=== PATIENT | female | born 1985 | race Caucasian/White ===

== ENCOUNTER 2017-05-20 11:19 | Inpatient (IN) | payer OTHER ==
[~2017-05-20] VITALS: Ht 172.7 cm; Wt 84.0 kg
[2017-05-20] MEDS ORDERED: LACTATED RINGERS 1,000 ML IV SCH (12:46)
[2017-05-20] MEDS ORDERED: D5%-LACTATED RINGERS 1,000 ML IV SCH (12:46)
[2017-05-20] MEDS ORDERED: OXYTOCIN 30U/ 0.9% NaCL 500ML 500 ML IV ONE (12:46)
[2017-05-20] MEDS ORDERED: SODIUM CHLORIDE FLUSH 10ML SYR IVF PRN (13:00)
[2017-05-20] MEDS ORDERED: FENTANYL PF 100 MCG/2ML IV PRN (13:00)
[2017-05-20] MEDS ORDERED: ONDANSETRON 2MG/ML, 2ML IVPush PRN (13:00)
[2017-05-20] MEDS ORDERED: TERBUTALINE 1 MG/ML, 1ML IVPush PRN (13:00)
[2017-05-20] MEDS ORDERED: PENICILLIN GK 5,000,000 UNITS in DEXTROSE 5% 100 ML IVPB ONE (13:00)
[2017-05-20] MEDS ORDERED: FENTANYL PF 100 MCG/2ML IVPush PRN (13:00)
[2017-05-20] MEDS ORDERED: CALCIUM CARBONATE 500 MG TAB.CHEW PO PRN (13:00)
[2017-05-20 13:13] LABS: HEMATOCRIT 43.4 % (34.6-47.8); HEMOGLOBIN 14.7 g/dL (11.7-16.4); WHITE BLOOD COUNT 9.6 x10^3/uL (3.4-10)
[2017-05-20] MEDS ORDERED: BETAMETHASONE 6 MG/ML, 5ML IM ONE ×2 (13:37→14:00)
[2017-05-20] MEDS: PLEASE ENTER HEIGHT AND WEIGHT MC SCH ×4 (14:00→22:00)
[2017-05-20] MEDS ORDERED: NEWBORN KIT ONE (15:13)
[2017-05-20] MEDS ORDERED: LIDOCAINE 1%, 20ML ONE ×2 (15:13→15:14)
[2017-05-20] MEDS ORDERED: MISOPROSTOL 200 MCG TABLET ONE (15:13)
[2017-05-20] MEDS ORDERED: OXYTOCIN 30U/ 0.9% NaCL 500ML 500 ML ONE (15:14)
[2017-05-20] MEDS: PENICILLIN GK 2,500,000 UNITS in DEXTROSE 5% 100 ML IVPB SCH ×2 (17:08→21:57)
[2017-05-21] VITALS (7 sets, daily range): BP systolic 107–118; BP diastolic 56–78
[2017-05-21] MEDS: OXYTOCIN 30U/ 0.9% NaCL 500ML 500 ML IV SCH ×3 (00:37→20:37)
[2017-05-21] MEDS ORDERED: ACETAMINOPHEN 325 MG TABLET PO PRN ×2 (01:00)
[2017-05-21] MEDS ORDERED: ONDANSETRON 2MG/ML, 2ML IV PRN (01:00)
[2017-05-21] MEDS ORDERED: MAGNESIUM HYDROXIDE 8%, 30ML UDC PO PRN (01:00)
[2017-05-21] MEDS ORDERED: MISOPROSTOL 200 MCG TABLET PR PRN (01:00)
[2017-05-21] MEDS ORDERED: OXYcodone/APAP 5/325MG TABLET PO PRN ×2 (01:00)
[2017-05-21] MEDS ORDERED: CALCIUM CARBONATE 500 MG TAB.CHEW PO PRN (01:00)
[2017-05-21] MEDS ORDERED: METHYLERGONOVINE 0.2 MG/ML IM PRN (01:00)
[2017-05-21] MEDS ORDERED: CARBOPROST TROMETHAMINE 250 MCG/ML, 1ML IM PRN (01:00)
[2017-05-21] MEDS ORDERED: IBUPROFEN 600 MG TABLET ONE (01:45)
[2017-05-21] MEDS: IBUPROFEN 600 MG TABLET PO PRN ×2 (01:50→16:42)
[2017-05-21] MEDS: PLEASE ENTER HEIGHT AND WEIGHT MC SCH ×6 (06:00→22:00)
[2017-05-21] MEDS: PRENATAL VIT/IRON/FA 1 EACH TABLET PO SCH (09:00)
[2017-05-21 20:40] LABS: HEMATOCRIT 34.6 % (34.6-47.8); HEMOGLOBIN 12.1 g/dL (11.7-16.4); WHITE BLOOD COUNT 11.2 x10^3/uL (3.4-10)
[2017-05-22] MEDS: IBUPROFEN 600 MG TABLET PO PRN (00:09)
[2017-05-22 00:19] VITALS: BP 114/80
[2017-05-22] MEDS ORDERED: IBUP-1222 PO (03:48)
[2017-05-22] MEDS ORDERED: OXYC-302 PO (03:50)
[2017-05-22] MEDS: PLEASE ENTER HEIGHT AND WEIGHT MC SCH ×2 (06:00)
[2017-05-22] MEDS: OXYTOCIN 30U/ 0.9% NaCL 500ML 500 ML IV SCH (06:37)
[2017-05-22 08:00] VITALS: BP 122/84
[2017-05-22] MEDS: PRENATAL VIT/IRON/FA 1 EACH TABLET PO SCH (08:49)
[2017-05-22 12:00] VITALS: BP 123/83
== END 2017-05-22 13:15 | disposition home or self-care (01) | DRG 775 ==
LOC: LDOP 11:19 → LDIP 12:46 → UNDOADMIN 12:46 → 2NW 05-21 02:30
PROVIDERS: ADMIT Obstetrics & Gynecology; ATTEND Obstetrics & Gynecology
PROC: 10E0XZZ Delivery of Products of Conception, External Approach (ICD-10-PCS; principal; 2017-05-21)
DX: O42.913 Preterm premature rupture of membranes, unspecified as to length of time between rupture and onset of labor, third trimester (principal); O71.89 Other specified obstetric trauma; Z37.0 Single live birth; Z3A.34 34 weeks gestation of pregnancy
CPT/HCPCS: 36415; 82947; 82962; 85025; 86850; 86900; 87081; 87491; 87591; 89060; J0702; J2540; J2590; J7120; Q0114